=== PATIENT | female | born 1975 | race Caucasian/White ===

== ENCOUNTER 2020-02-08 15:56 | Outpatient (REF) | payer BC, SELFPAY ==
--- NOTE | 2020-02-08 | MM_ITS ---
EXAMINATION: MM SCREENING DIGITAL BREAST TOMOSYNTHESIS, BILATERAL CLINICAL INFORMATION: Screening. Asymptomatic. Family history breast cancer in mother, age 61. 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 The lifetime risk of breast cancer based on the Tyrer-Cuzick Model is 10%. COMPARISON: Mammography: 02/02/2019, 05/19/2018, outside mammography 03/31/2017 and 03/27/2016 ([facility]). TECHNIQUE: Digital breast tomosynthesis is performed in both the craniocaudal and mediolateral oblique views along with computer-aided detection (CAD). Synthesized 2D images are generated from the tomosynthesis. FINDINGS: The breasts are heterogeneously dense, which may obscure small masses (ACR BI-RADS breast composition Category c). There are no significant masses, abnormal calcifications, or other abnormalities. There is biopsy clip marker again noted 8:00 left breast. The axilla and skin contours are unremarkable. No significant changes. IMPRESSION: No mammographic evidence of malignancy. ASSESSMENT: BI-RADS 1: Negative RECOMMENDATION: Routine annual mammography screening. This patient's information was entered into a reminder system with a target due date for their next mammogram.
== END 2020-02-08 15:57 | disposition home or self-care (01) ==
LOC: HO.MAMMO 15:56
PROVIDERS: PCP Internal Medicine; Visit Provider Internal Medicine
DX: Z12.31 Encounter for screening mammogram for malignant neoplasm of breast (principal)
CPT/HCPCS: 77063; 77067; 78014

== ENCOUNTER → 2021-01-04 15:35 | Outpatient (BNVA) | payer BC, SELFPAY | PROVIDERS: PCP Internal Medicine; Visit Provider Surgery ==

== ENCOUNTER 2021-02-20 15:33 | Outpatient (REF) | payer BC, SELFPAY ==
--- NOTE | ~2021-02-20 | MM_ITS ---
EXAMINATION: MM SCREENING DIGITAL BREAST TOMOSYNTHESIS, BILATERAL CLINICAL INFORMATION: Screening. Asymptomatic. Benign MR guided biopsy left breast 05/19/2018 (hyalinized fibroadenoma). The lifetime risk of breast cancer based on the Tyrer-Cuzick Model is 23%. COMPARISON: Mammography: 02/08/2020, 02/02/2019 TECHNIQUE: Digital breast tomosynthesis is performed in both the craniocaudal and mediolateral oblique views along with computer-aided detection (CAD). Synthesized 2D images are generated from the tomosynthesis. FINDINGS: The breasts are heterogeneously dense, which may obscure small masses (ACR BI-RADS breast composition Category c). There are no significant masses, abnormal calcifications, or other abnormalities. Biopsy clip maker again noted mid medial left breast. Parenchymal pattern is similar to prior studies. The axilla and skin contours are unremarkable. MM/MM tomosynthesis screening BI IMPRESSION: No mammographic evidence of malignancy. ASSESSMENT: BI-RADS 1: Negative RECOMMENDATION: 1. Routine annual mammography screening. 2. The lifetime risk of breast cancer based on the Tyrer-Cuzick Model is 23%. Additional annual adjunct screening with breast MRI may be of benefit in women with a risk score of 20% or greater. This patient's information was entered into a reminder system with a target due date for their next mammogram.
== END 2021-02-20 15:34 | disposition home or self-care (01) ==
LOC: HO.MAMMO 15:33
PROVIDERS: Visit Provider Surgery
DX: Z12.31 Encounter for screening mammogram for malignant neoplasm of breast (principal)
CPT/HCPCS: 77063; 77067

== ENCOUNTER 2021-08-20 13:27 | Outpatient (REF) | payer BC, SELFPAY ==
--- NOTE | ~2021-08-20 | MR_ITS ---
EXAMINATION: MR BREAST WITHOUT AND WITH CONTRAST, BILATERAL CLINICAL INFORMATION: High-risk screening. Family history of breast cancer, mother. Dense breasts. COMPARISON: 03/09/2018. Subsequent biopsy 05/19/2018 identifying fibroadenoma. Mammography from 02/20/2021 and prior. TECHNIQUE: Imaging was performed with a dedicated breast coil. Prior to the administration of contrast, bilateral axial T1 and bilateral axial T2 weighted sequences were obtained. After the uneventful administration of?6.5 mL of Gadavist, dynamic contrast-enhanced VIBRANT series through the breasts in the axial plane were performed. Subtracted images were performed and reviewed. A delayed sagittal sequence through both breasts was acquired. Additionally, CAD post-processing, including maximum intensity projections, 3-D reconstructions and kinetic analysis, were performed an independent workstation and reviewed by the interpreting radiologist is a portion of this exam. FINDINGS: The breasts are comprised of heterogeneous, dense fibroglandular parenchyma. The tissue undergoes moderate heterogeneous background enhancement. LEFT BREAST: There is new 4 cm segmental non-mass enhancement at 9 o'clock (image 58/102) originating 3 cm from the nipple. No mammographic correlate. A stable 9 mm left breast mass at 9 o'clock (image 58) projecting 6 cm from the nipple. Mass previously biopsied, a fibroadenoma. A stable 5 mm left breast mass at 3 o'clock (image 52) projecting 2 cm from the nipple. RIGHT BREAST: A dominant 4 mm focus at 12 o'clock centrally (image 51) projecting 3.4 cm from the nipple is better seen but otherwise unchanged. No new right breast mass or suspicious non-mass enhancement. No additional findings on T2-weighted sequences, kinetic analysis or volume renderings. There is no suspicious internal mammary chain or axillary adenopathy. Limited views of the chest and abdomen are unremarkable. MR/MR breast BI wo/w con IMPRESSION: New suspicious 4 cm segmental non-mass enhancement in the left breast 9 o'clock position. ASSESSMENT: LEFT BREAST: BI-RADS 4, suspicious finding. RIGHT BREAST: BI-RADS 2, benign finding. RECOMMENDATIONS: MR-guided core biopsy left breast segmental non-mass enhancement at 9 o'clock.
== END 2021-08-20 13:28 | disposition home or self-care (01) ==
LOC: HO.MRI 13:27
PROVIDERS: Visit Provider Surgery
DX: N63.25 Unspecified lump in the left breast, overlapping quadrants (principal); N63.15 Unspecified lump in the right breast, overlapping quadrants; Z80.3 Family history of malignant neoplasm of breast
CPT/HCPCS: 77049; A9585

== ENCOUNTER 2021-09-05 07:36 | Outpatient (REF) | payer BC, SELFPAY ==
--- NOTE | ~2021-09-05 | MR_ITS ---
EXAMINATION: MR GUIDED VACUUM-ASSISTED CORE BIOPSY BREAST, LEFT MM DIGITAL MAMMOGRAPHY POST BIOPSY, LEFT CLINICAL INFORMATION: New segmental non-mass enhancement medial left breast. Prior left MR biopsy medial breast 05/19/2018 (hyalinized fibroadenoma). Family history breast cancer, mother. TC score 22%.. COMPARISON: MR breasts 08/20/2021, MR guided breast biopsy 05/19/2018, mammography 02/20/2021. TECHNIQUE/PROCEDURE: Informed consent was obtained from the patient after discussion of the benefits, risks, and alternatives to biopsy today. Patient appeared to understand. Gave opportunity for questions. Patient signed consent form. Biopsy is performed under MRI guidance using breast surface coil. Imaging is performed without and with use of 6.5 mL Gadavist gadolinium contrast. [employer] introducer localization system is used with grid. LESION: Segmental non-mass enhancement medial left breast. LOCAL ANESTHESIA: 6 mL carbonated 1% lidocaine; 11 mL 1% lidocaine with epinephrine. NEEDLE: [employer] 9-gauge vacuum assisted core biopsy device. APPROACH: Medial lateral. CORES: 12. CLIP: TriMark spool (barbell) shape. POSTPROCEDURE UNILATERAL DIGITAL MAMMOGRAM: Mammography is performed using digital mammography in CC and ML views. The breasts are heterogeneously dense, which may obscure small masses (ACR BI-RADS breast composition Category c). Biopsy clip marker is in expected position. There is also an old cylinder shaped biopsy clip marker from prior MR biopsy 2018 (fibroadenoma) near this area. No gross hematoma. The patient tolerated the procedure well. No immediate complications. Home instructions reviewed with the patient. Final pathology results are pending. MR/MR guided breast biopsy LT IMPRESSION: 1. Status post MRI guided vacuum-assisted core biopsy left breast with clip placement. 2. Final pathology results pending. An addendum report will be issued.
--- NOTE | ~2021-09-05 | MM_ITS ---
EXAMINATION: MR GUIDED VACUUM-ASSISTED CORE BIOPSY BREAST, LEFT MM DIGITAL MAMMOGRAPHY POST BIOPSY, LEFT CLINICAL INFORMATION: New segmental non-mass enhancement medial left breast. Prior left MR biopsy medial breast 05/19/2018 (hyalinized fibroadenoma). Family history breast cancer, mother. TC score 22%.. COMPARISON: MR breasts 08/20/2021, MR guided breast biopsy 05/19/2018, mammography 02/20/2021. TECHNIQUE/PROCEDURE: Informed consent was obtained from the patient after discussion of the benefits, risks, and alternatives to biopsy today. Patient appeared to understand. Gave opportunity for questions. Patient signed consent form. Biopsy is performed under MRI guidance using breast surface coil. Imaging is performed without and with use of 6.5 mL Gadavist gadolinium contrast. [employer] introducer localization system is used with grid. LESION: Segmental non-mass enhancement medial left breast. LOCAL ANESTHESIA: 6 mL carbonated 1% lidocaine; 11 mL 1% lidocaine with epinephrine. NEEDLE: [employer] 9-gauge vacuum assisted core biopsy device. APPROACH: Medial lateral. CORES: 12. CLIP: TriMark spool (barbell) shape. POSTPROCEDURE UNILATERAL DIGITAL MAMMOGRAM: Mammography is performed using digital mammography in CC and ML views. The breasts are heterogeneously dense, which may obscure small masses (ACR BI-RADS breast composition Category c). Biopsy clip marker is in expected position. There is also an old cylinder shaped biopsy clip marker from prior MR biopsy 2018 (fibroadenoma) near this area. No gross hematoma. The patient tolerated the procedure well. No immediate complications. Home instructions reviewed with the patient. Final pathology results are pending. MM/MM diagnostic mammo unilat LT IMPRESSION: 1. Status post MRI guided vacuum-assisted core biopsy left breast with clip placement. 2. Final pathology results pending. An addendum report will be issued.
[2021-09-05] MEDS: Sodium Bicarbonate 8.4% 50 MEQ/50 ML SYRINGE IVPUSH (09:55)
[2021-09-05] MEDS: Lidocaine HCl 1%/Epi 1:100,000 20 ML VIAL INFILTRATI (09:56)
[2021-09-05] MEDS: Lidocaine HCl 1 % MPF 5 ML VIAL SUBCUT (09:58)
== END 2021-09-05 07:37 | disposition home or self-care (01) ==
LOC: HO.MRI 07:36
PROVIDERS: Visit Provider Surgery
DX: R92.8 Other abnormal and inconclusive findings on diagnostic imaging of breast (principal)
CPT/HCPCS: 19085; 77062; 77065; 88305; A4648; A9585

== ENCOUNTER 2022-02-26 15:22 | Outpatient (REF) | payer BC, SELFPAY ==
--- NOTE | ~2022-02-26 | MM_ITS ---
EXAMINATION: MM SCREENING DIGITAL BREAST TOMOSYNTHESIS, BILATERAL CLINICAL INFORMATION: Screening. Asymptomatic. The lifetime risk of breast cancer based on the Tyrer-Cuzick Model is 21.1 Additional annual screening with breast MRI may be of benefit in women with a score of 20% or greater. COMPARISON: Mammography: September 05, 2021 and studies dating back to MRI of March 09, 2018. TECHNIQUE: Digital breast tomosynthesis is performed in both the craniocaudal and mediolateral oblique views along with computer-aided detection (CAD). Synthesized 2D images are generated from the tomosynthesis. FINDINGS: The breasts are heterogeneously dense, which may obscure small masses (ACR BI-RADS breast composition Category c). There are no new significant masses, abnormal calcifications, or other abnormalities. MM/MM tomosynthesis screening BI IMPRESSION: No significant changes from prior exam. ASSESSMENT: BI-RADS 1: Negative RECOMMENDATION: Routine annual mammography screening. This patient's information was entered into a reminder system with a target due date for their next mammogram.
== END 2022-02-26 15:23 | disposition home or self-care (01) ==
LOC: HO.MAMMO 15:22
PROVIDERS: PCP Internal Medicine; Visit Provider Surgery
DX: Z12.31 Encounter for screening mammogram for malignant neoplasm of breast (principal)
CPT/HCPCS: 77063; 77067

== ENCOUNTER 2023-01-23 14:48 | Outpatient (AMB) | payer BC, SELFPAY ==
--- NOTE | 2023-01-23 14:50 | MHC.OFFVIS ---
Intake Vital Signs 01/23/23 14:57 Height 5 ft 2 in Weight 144 lb 4 oz BMI 26.4 BP 118/71 Blood Pressure Location Lt brachial Position Sitting Pulse 91 Intake Visit Reasons: YEARLY BREAST EXAMINATION Intake Note: Patient is seen in office for yearly breast exam. 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 She was previously followed in Dr. Lea's high risk breast cancer program. Her family history is significant for her mother being diagnosed with a stage 4 breast cancer after finding a large breast mass. She one year after the diagnosis. In addition, her paternal grandmother also was treated for breast cancer and underwent a bilateral mastectomy. She lived well into her 90's. She underwent a MR guided vacuum assisted core biopsy a left breast on 05/19/2018 for a nodular non mass enhancement at the 9 o'clock position measuring 5 x 9 mm. Subsequent pathology revealed a hyalinized fibroadenoma. Her Tyrer-Cuzick remaining lifetime risk of breast cancer was calculated at 23%, above the 20% threshold placing her at high risk for breast cancer. MRI dated 08/20/2021 revealed a new suspicious 4 cm segmental non-mass enhancement in the left breast, 9 o'clock position. She underwent MR guided core biopsy on 09/05/2021 and the pathology revealed benign breast tissue with fibrocystic change, pseudoangiomatous stromal hyperplasia and features suggestive of a hamartoma. Her most recent mammogram dated 02/26/2022 revealed no significant changes from the prior mammogram (BI-RADS 1). Routine annual screening mammogram is scheduled for 02/27/2023. She is due for a breast MRI both like to skip for this year due to her anxiety with the test.. She denies any new palpable masses, skin changes, nipple discharge or other associated breast symptoms. She continues to be followed by her surgical sales representative, Dr. Montes. [facility] Family History Paternal Grandmother Breast cancer Mother Breast cancer Social History Alcohol intake: current Patient Tobacco Use Status: Never used Tobacco Female Reproductive History Menstrual Age of Menarche: 16 Review of Systems Const All systems reviewed & are unremarkable except as noted in HPI and below Denies nipple discharge Skin/Breast Denies breast swelling, Denies breast skin changes, Denies breast pain, Denies breast mass, Denies change in breast shape, Denies change in pigmentation and Denies nipple discharge Yunior/Lymph Denies lymphadenopathy Physical Exam Const General: cooperative, no acute distress and well developed Nutritional Appearance: well nourished Orientation/consciousness: patient oriented x3 Limitations: no limitations HEENT Head: Yes normocephalic and Yes atraumatic Neck Neck: Yes no lymphadenopathy, Yes trachea midline and Yes supple Chest Other: Left breast: No skin change, no nipple retraction, no nipple discharge, no palpable mass, no enlarged lymph nodes. Slight increased fibrocystic change in the upper outer quadrant compared to the right breast Right breast: No skin change, no nipple retraction, no nipple discharge, no palpable mass, no enlarged lymph nodes Resp Effort & Inspection: normal respiratory effort, no audible wheezes, no cough and no respiratory distress GI Inspection: Yes normal to inspection Skin General skin exam: no rashes or lesions noted Neuro General: patient oriented x3 Extrem General: Yes no clubbing, cyanosis or edema Assessment & Plan Assessment & Plan (1) Family history of breast cancer: Code(s): Z80.3 - Family history of malignant neoplasm of breast (2) Breast cancer screening, high risk patient: Code(s): Z12.39 - Encounter for other screening for malignant neoplasm of breast Plan 47-year-old female patient returning for a yearly follow-up examination due to her high risk for breast cancer. She feels well and denies any ongoing breast symptoms. Examination today reveals normal breast tissue which is dense bilaterally. She is due for a yearly mammogram which is scheduled for 02/27/2022. She is also due for breast MRI; will push this back 6 months the following the mammogram. She should follow up in 1 year for breast examination and continue her follow-up with her surgical sales representative. She should call sooner for any concerns. Coding Level of Care Code Est Pt Level 3 (69845) Diagnoses Family history of breast cancer Z80.3 Breast cancer screening, high risk patient Z12.39
[2023-01-23 14:57] VITALS: BP 118/71; PULSE 91; BMI 26.4
== END 2023-01-23 15:07 | disposition home or self-care (01) ==
PROVIDERS: PCP Internal Medicine; Visit Provider Surgery
DX: Z80.3 Family history of malignant neoplasm of breast (principal); Z12.39 Encounter for other screening for malignant neoplasm of breast
CPT/HCPCS: 99213

== ENCOUNTER → 2023-01-23 14:48 | Outpatient (BNVA) | payer BC, SELFPAY | PROVIDERS: PCP Internal Medicine; Visit Provider Surgery ==

== ENCOUNTER 2023-02-27 15:36 | Outpatient (REF) | payer BC, SELFPAY ==
--- NOTE | ~2023-02-27 | MM_ITS ---
EXAMINATION: MM SCREENING DIGITAL BREAST TOMOSYNTHESIS, BILATERAL CLINICAL INFORMATION: Screening. Asymptomatic. COMPARISON: Mammography: This study is compared with prior exams dating back to 2019. TECHNIQUE: Digital breast tomosynthesis is performed in both the craniocaudal and mediolateral oblique views along with computer-aided detection (CAD). Synthesized 2D images are generated from the tomosynthesis. FINDINGS: The breasts are heterogeneously dense, which may obscure small masses (ACR BI-RADS breast composition Category c). There are no significant masses, abnormal calcifications, or other abnormalities. There are 2 tissue markers in the medial aspect of the left breast from prior benign percutaneous biopsy. MM/MM tomosynthesis screening BI IMPRESSION: No mammographic evidence of malignancy. ASSESSMENT: BI-RADS BI-RADS 2 - Benign Findings RECOMMENDATION: Routine annual mammography screening. 1 year F/U This examination should not preclude the clinical evaluation of a suspicious palpable abnormality. This patient's information was entered into a reminder system with a target due date for their next mammogram.
== END 2023-02-27 15:37 | disposition home or self-care (01) ==
LOC: HO.MAMMO 15:36
PROVIDERS: PCP Internal Medicine; Referring Provider Surgery; Visit Provider Internal Medicine
DX: Z12.31 Encounter for screening mammogram for malignant neoplasm of breast (principal)
CPT/HCPCS: 77063; 77067

== ENCOUNTER → 2023-02-27 15:45 | Outpatient (BNV) | payer BC, SELFPAY | PROVIDERS: PCP Internal Medicine; Referring Provider Surgery; Visit Provider Radiology Diagnostic Radiology | DX: Z12.31 Encounter for screening mammogram for malignant neoplasm of breast (principal) | CPT/HCPCS: 77063; 77067 ==

== ENCOUNTER 2023-09-09 14:08 | Outpatient (AMB) | payer BC, SELFPAY ==
--- NOTE | 2023-09-09 14:13 | A.OFFVIS_ITS ---
Vital Signs 09/09/23 14:14 Height 5 ft 2 in Weight 145 lb BMI 26.5 BP 132/75 Blood Pressure Location Rt brachial Position Sitting Pulse 104 H Intake Visit Reasons: Left shoulder pain, ? breast MRI Intake Note: This patient presents for an assessment for left shoulder pain. Patient c/o; reports left shoulder pain, reports ? Rotator cuff tear. 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 She was previously followed in Dr. Lea's high risk breast cancer program. Her family history is significant for her mother being diagnosed with a stage 4 breast cancer after finding a large breast mass. She one year after the diagnosis. In addition, her paternal grandmother also was treated for breast cancer and underwent a bilat eral mastectomy. She lived well into her 90's. She underwent a MR guided vacuum assisted core biopsy a left breast on 05/19/2018 for a nodular non mass enhancement at the 9 o'clock position measuring 5 x 9 mm. Subsequent pathology revealed a hyalinized fibroadenoma. Her Tyrer-Cuzick remaining lifetime risk of breast cancer was calculated at 23%, above the 20% threshold placing her at high risk for breast cancer. MRI dated 08/20/2021 revealed a new suspicious 4 cm segmental non-mass enhancement in the left breast, 9 o'clock position. She underwent MR guided core biopsy on 09/05/2021 and the pathology revealed benign breast tissue with fibrocystic change, pseudoangiomatous stromal hyperplasia and features suggestive of a hamartoma. Her most recent mammogram dated 02/26/2022 revealed no significant changes from the prior mammogram (BI-RADS 1). Routine annual screening mammogram is scheduled for 02/27/2023. She reports severe left shoulder pain which he believes started when she slept ?the wrong way. ? Pain has persisted despite taking ibuprofen, applying ice and applying heat. She does not feel she could undergo the MRI because of the difficulty of raising her left arm. COUNTS INCLUDE 234 BEDS AT THE [facility] Family History Paternal Grandmother Breast cancer Mother Breast cancer Social History Alcohol intake: current Patient Tobacco Use Status: Never used Tobacco Female Reproductive History Menstrual Age of Menarche: 16 Review of Systems Musc Reports as per HPI and Reports limited range of motion Physical Exam Vital Signs: Last Vital Signs Pulse 104 H 09/09/23 14:14 BP 132/75 09/09/23 14:14 BMI result Body Mass Index 26.5 Const General: no acute distress Chest Other: Exam deferred Resp Effort & Inspection: normal respiratory effort, no audible wheezes, no cough and no respiratory distress Extrem Other: Left shoulder unable to actively passively raise arm overhead. No tenderness to palpation of the shoulder. No bruising identified. Assessment & Plan Assessment & Plan (1) Left shoulder pain: Code(s): M25.512 - Pain in left shoulder Category: Medical Qualifiers: Chronicity: acute Qualified Code(s): M25.512 - Pain in left shoulder (2) Breast cancer screening, high risk patient: Code(s): Z12.39 - Encounter for other screening for malignant neoplasm of breast Category: Medical (3) Family history of breast cancer: Code(s): Z80.3 - Family history of malignant neoplasm of breast Category: Medical Plan Patient with severe shoulder pain therefore will be unable to proceed with breast MRI. We will refer to orthopedics for further evaluation. Will obtain bilateral screening ultrasound the breast as an alternative to breast MRI. Follow-up as previously scheduled. Orders: Orders US breast LT complete Today Z12.39 - Encounter for other screening for malignant neoplasm of breast, Z80.3 - Family history of malignant neoplasm of breast US breast RT complete Today Z12.39 - Encounter for other screening for malignant neoplasm of breast, Z80.3 - Family history of malignant neoplasm of breast Referrals Orthopedics Referral M25.512 - Pain in left shoulder Coding Level of Care Code Est Pt Level 3 (32179) Diagnoses Acute pain of left shoulder M25.512 Chronicity: acute Breast cancer screening, high risk patient Z12.39 Family history of breast cancer Z80.3
[2023-09-09 14:14] VITALS: BP 132/75; PULSE 104; BMI 26.5
== END 2023-09-09 14:50 | disposition home or self-care (01) ==
PROVIDERS: PCP Internal Medicine; Visit Provider Surgery
DX: M25.512 Pain in left shoulder (principal); Z80.3 Family history of malignant neoplasm of breast; Z12.39 Encounter for other screening for malignant neoplasm of breast
CPT/HCPCS: 99213

== ENCOUNTER → 2023-09-09 14:08 | Outpatient (BNVA) | payer BC, SELFPAY | PROVIDERS: PCP Internal Medicine; Visit Provider Surgery ==

== ENCOUNTER 2023-09-23 14:00 | Outpatient (AMB) | payer BC, SELFPAY ==
[2023-09-23 14:10] VITALS: BMI 26.5
--- NOTE | 2023-09-23 14:10 | MHC.OFFVIS ---
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 The patient describes her pain as sharp in nature, 7/10. Patient states that her pain will radiate down to her left elbow. The patient states that she injured her left shoulder approximately 7 months ago when her yellow Labrador dog hold on his leash and her left shoulder when he chased after a chipmunk. The patient reports weakness when lifting her left hand above shoulder height. She has done physical therapy exercises which aggravated her pain. She has also tried Tylenol and Aleve which gave her minimal. 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 Female Reproductive History Menstrual Age of Menarche: 16 Physical Exam Vital Signs: BMI result Body Mass Index 26.5 Const Other: Well-nourished well-developed very friendly female awake alert and oriented x3 in no acute distress Extrem Other: Bilateral upper extremity examination shows good capillary refill, no skin lesions noted, normal sensation light touch Left shoulder examination shows slightly decreased range of motion when compared to her right shoulder, pain with range of motion, positive impingement signs, tenderness over her acromioclavicular joint, no instability Results Reviewed Results Reviewed: X-rays of the patient's left shoulder show severe acromioclavicular joint narrowing, a type 2 acromion, no acute bony abnormalities Assessment & Plan Assessment & Plan (1) Left shoulder pain: Code(s): M25.512 - Pain in left shoulder Category: Medical Qualifiers: Chronicity: acute Qualified Code(s): M25.512 - Pain in left shoulder Plan Ms. Mar presents with left shoulder pain and weakness due to impingement syndrome and possible full-thickness rotator cuff tearing. Thus, I will send the patient for an MRI of her left shoulder for further evaluation. She will continue with the range of motion exercises in the meantime. I will see her back following her MRI to discuss the findings and treatment options. Feel free to call me at any time should questions regarding her orthopedic management arise. Thank you very much for asking me to see this very friendly patient. I spent 20 minutes in reviewing the patient's records and imaging studies, seeing the patient and documenting in the medical record. Orders: Orders XR shoulder LT min 2V 09/23/23 M25.512 - Pain in left shoulder MR shoulder LT wo con 09/23/23 M25.512 - Pain in left shoulder Coding Level of Care Code New Pt Level 3 (20858) Diagnoses Acute pain of left shoulder M25.512 Chronicity: acute
== END 2023-09-23 14:38 | disposition home or self-care (01) ==
PROVIDERS: PCP Internal Medicine; Visit Provider Orthopaedic Surgery
DX: M25.512 Pain in left shoulder (principal)
CPT/HCPCS: 99203

== ENCOUNTER 2023-09-23 15:44 | Outpatient (REF) | payer BC, SELFPAY ==
--- NOTE | ~2023-09-23 | XR_ITS ---
EXAMINATION: XR SHOULDER, LEFT CLINICAL INFORMATION: Pain in left shoulder pain COMPARISON: None available. TECHNIQUE: Two views of the left shoulder. FINDINGS: Minimal degenerative changes in the acromioclavicular and glenohumeral joints. Acromioclavicular and glenohumeral alignment is preserved. No abnormal soft tissue calcifications identified adjacent to the humeral head to suggest rotator cuff pathology. XR/XR shoulder LT min 2V IMPRESSION: Minimal degenerative changes.
== END 2023-09-23 15:45 | disposition home or self-care (01) ==
LOC: HO.HOSX 15:44
PROVIDERS: Visit Provider Orthopaedic Surgery
DX: M25.512 Pain in left shoulder (principal)
CPT/HCPCS: 73030

== ENCOUNTER 2023-10-01 13:42 | Outpatient (AMB) | payer BC, SELFPAY ==
[2023-10-01 13:47] VITALS: BMI 26.5
--- NOTE | 2023-10-01 13:47 | A.OFFVIS_ITS ---
Vital Signs 10/01/23 13:47 Height 5 ft 2 in Weight 145 lb BMI 26.5 Intake Visit Reasons: OV - Left shoulder MRI Follow Up Intake Note: Saskia is a 47 year old Left hand dominant female who presents with intermittent left shoulder pain. The patient describes her pain as sharp in nature, 7/10. Patient states that her pain will radiate down to her left elbow. The patient states that she injured her left shoulder approximately 7 months ago when her yellow Labrador dog hold on his leash and her left shoulder when he chased after a chipmunk. She has done physical therapy exercises which aggravated her pain. She has also tried Tylenol and Aleve which gave her minimal. 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 Female Reproductive History Menstrual Age of Menarche: 16 Physical Exam Vital Signs: BMI result Body Mass Index 26.5 Const Other: Well-nourished well-developed very friendly female awake alert and oriented x3 in no acute distress Extrem Other: Bilateral upper extremity examination shows good capillary refill, no skin lesions noted, normal sensation light touch Left shoulder examination shows full range of motion when compared to her right shoulder, positive impingement signs, 5/5 strength with supraspinatus testing, no instability Office Procedures Joint Injection/Drain Joint Injection/Drain Primary Site: left shoulder Prep: site was prepped using aseptic technique Injected: 40 mg of, DepoMedrol and 1% plain lidocaine Procedure: The patient tolerated the procedure well Coding 66191 - Large joint Procedure code (CPT) selection complete Results Reviewed Results Reviewed: MRI of the patient's left shoulder shows moderate to severe acromioclavicular joint narrowing, a type 3 acromion, signal change within the supraspinatus tendo n most likely due to rotator cuff tendinosis Assessment & Plan Assessment & Plan (1) Left shoulder pain: Code(s): M25.512 - Pain in left shoulder Category: Medical Qualifiers: Chronicity: acute Qualified Code(s): M25.512 - Pain in left shoulder Plan Ms. Mar presents with left shoulder pain due to impingement syndrome and rotator cuff tendinosis. I had a lengthy discussion with the patient regarding the treatment options. She wishes to hold off on surgery for as long as possible. I agree with this plan. The risks and benefits of a left shoulder cortisone injection were discussed at length with the patient. The patient wished to proceed with the injection. She tolerated the injection well. She will continue with her home stretching program to prevent stiffness. She will follow up with me on an as-needed basis should her symptoms not plateau at an unacceptable level over the next few months. Feel free to call me at any time should questions regarding her orthopedic management arise. I spent 21 minutes in reviewing the patient's records and imaging studies, seeing the patient and documenting in the medical record. Orders: Orders AMB Joint Injection/Aspiration 10/01/23 M25.512 - Pain in left shoulder Coding Level of Care Code Est Pt Level 3 (54493) Diagnoses Acute pain of left shoulder M25.512 Chronicity: acute CPT Codes Coding - 80502 Large joint: 46464 - Large joint ([id number])
== END 2023-10-01 14:28 | disposition home or self-care (01) ==
PROVIDERS: PCP Internal Medicine; Visit Provider Orthopaedic Surgery
DX: M25.512 Pain in left shoulder (principal)
CPT/HCPCS: 20610; 99213

== ENCOUNTER → 2023-10-01 13:42 | Outpatient (BNVA) | payer BC, SELFPAY | PROVIDERS: PCP Internal Medicine; Visit Provider Orthopaedic Surgery | DX: M75.42 Impingement syndrome of left shoulder (principal); M67.814 Other specified disorders of tendon, left shoulder | CPT/HCPCS: 20610; J1010 ==

== ENCOUNTER 2023-11-11 14:48 | Outpatient (REF) | payer BC, SELFPAY ==
--- NOTE | ~2023-11-11 | US_ITS ---
EXAMINATION: US DIAGNOSTIC ULTRASOUND BREAST, BILATERAL CLINICAL INFORMATION: Screening, high risk for breast cancer, patient unable to undergo screening breast MRI due to rotator cuff shoulder injury. COMPARISON: No prior screening ultrasound. Mammography 02/27/2023, 02/26/2022, 02/20/2021, 02/08/2020. Screening MRI 08/20/2021. TECHNIQUE: Ultrasound of the both breasts was performed with real-time dorsey scale imaging and color Doppler. This included all 4 quadrants of both breasts including the retroareolar regions. The axillary regions were also included within the confines of rotator cuff injury. FINDINGS: There is no focal suspicious finding. There is no solid mass, architectural abnormality, duct ectasia, abnormal shadowing, or edema in the soft tissue planes. No axillary lymphadenopathy was evident. Results were provided to the patient at time of visit by the technologist. US/US breast BI complete IMPRESSION: Negative bilateral breast screening ultrasound. No findings suspicious for malignancy. ASSESSMENT: BI-RADS 1 - Negative RECOMMENDATION: 1 year F/U This patient's information was entered into a reminder system with a target due date for their next mammogram.
== END 2023-11-11 14:49 | disposition home or self-care (01) ==
LOC: HO.MAMMO 14:48
PROVIDERS: PCP Internal Medicine; Visit Provider Surgery
DX: Z12.39 Encounter for other screening for malignant neoplasm of breast (principal); Z80.3 Family history of malignant neoplasm of breast
CPT/HCPCS: 76641

== ENCOUNTER → 2023-11-11 15:00 | Outpatient (BNV) | payer BC, SELFPAY | PROVIDERS: PCP Internal Medicine; Visit Provider Radiology Diagnostic Radiology | DX: Z12.31 Encounter for screening mammogram for malignant neoplasm of breast (principal); Z80.3 Family history of malignant neoplasm of breast | CPT/HCPCS: 76641 ==

== ENCOUNTER 2024-01-01 13:14 | Outpatient (AMB) | payer BC, SELFPAY ==
[2024-01-01 13:27] VITALS: BMI 26.5
--- NOTE | 2024-01-01 13:27 | MHC.OFFVIS ---
Vital Signs 01/01/24 13:27 Height 5 ft 2 in Weight 145 lb BMI 26.5 Intake Visit Reasons: Left shoulder pain - last inj 10/01/23 Intake Note: Saskia is a 48 year old female who presents with complaints of left shoulder pain. The patient did have a cortisone injection given into her left shoulder earlier this year. She got temporary relief from the injection. She denies any weakness. She has done physical therapy exercises which aggravated her pain. She has tried Tylenol and anti-inflammatory medicines which gave her minimal relief. She would like to hold off on surgery if at all possible. 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 Female Reproductive History Menstrual Age of Menarche: 16 Physical Exam Vital Signs: BMI result Body Mass Index 26.5 Const Other: Well-nourished well-developed very friendly female awake alert and oriented x3 in no acute distress Extrem Other: Bilateral upper extremity examination shows good capillary refill, no skin lesions noted, normal sensation light touch Left shoulder examination shows decreased range of motion when compared to her right shoulder, 4+ out of 5 strength with supraspinatus testing, positive impingement signs, tenderness over her acromioclavicular joint, no instability Office Procedures Joint Injection/Aspiration Joint Injection/Aspiration Primary Site: left shoulder Prep: site was prepped using aseptic technique Injected: 40 mg of, DepoMedrol and 1% plain lidocaine Procedure: The patient tolerated the procedure well Coding 13940 - Large joint Procedure code (CPT) selection complete Assessment & Plan Assessment & Plan (1) Impingement syndrome of left shoulder: Code(s): M75.42 - Impingement syndrome of left shoulder Category: Medical Plan Ms. Mar presents with left shoulder pain due to impingement syndrome and acromioclavicular joint arthritis. I had a lengthy discussion with the patient regarding the treatment options. The risks and benefits of a left shoulder cortisone injection were discussed at length with the patient. The patient wished to proceed. She tolerated the injection well. She will continue with her home stretching program. She will follow up with me on an as-needed basis should her symptoms not plateau at an unacceptable level over the next few months. If she fails continued non operative treatments we will further discuss the risks and benefits of left shoulder arthroscopic surgery. Feel free to call me at any time should questions regarding her orthopedic management arise. I spent 21 minutes in reviewing the patient's records and imaging studies, seeing the patient and documenting in the medical record. Orders: Orders AMB Joint Injection/Aspiration 01/01/24 M75.42 - Impingement syndrome of left shoulder Coding Level of Care Code Est Pt Level 3 (81866) Complex EM visit Add On G2211 Diagnoses Impingement syndrome of left shoulder M75.42 CPT Codes Coding - 54988 Large joint: 50881 - Large joint ([id number])
== END 2024-01-01 13:58 | disposition home or self-care (01) ==
PROVIDERS: PCP Internal Medicine; Visit Provider Orthopaedic Surgery
DX: M75.42 Impingement syndrome of left shoulder (principal)
CPT/HCPCS: 20610; 99213

== ENCOUNTER → 2024-01-01 13:14 | Outpatient (BNVA) | payer BC, SELFPAY | PROVIDERS: PCP Internal Medicine; Visit Provider Orthopaedic Surgery | DX: M75.42 Impingement syndrome of left shoulder (principal); M19.012 Primary osteoarthritis, left shoulder | CPT/HCPCS: 20610; J1010 ==

== ENCOUNTER 2024-02-12 15:07 | Outpatient (AMB) | payer BC, SELFPAY ==
--- NOTE | 2024-02-12 15:08 | MHC.OFFVIS ---
Vital Signs 02/12/24 15:15 Height 5 ft 2 in Weight 146 lb BMI 26.7 BP 138/75 Blood Pressure Location Lt brachial Position Sitting Pulse 98 Intake Visit Reasons: yearly breast exam Intake Note: Patient is seen in office for yearly breast exam. 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 She was previously followed in Dr. Lea's high risk breast cancer program. Her family history is significant for her mother being diagnosed with a stage 4 breast cancer after finding a large breast mass. She one year after the diagnosis. In addition, her paternal grandmother also was treated for breast cancer and underwent a bilateral mastectomy. She lived well into her 90's. She underwent a MR guided vacuum assisted core biopsy a left breast on 05/19/2018 for a nodular non mass enhancement at the 9 o'clock position measuring 5 x 9 mm. Subsequent pathology revealed a hyalinized fibroadenoma. Her Tyrer-Cuzick remaining lifetime risk of breast cancer was calculated at 23%, above the 20% threshold placing her at high risk for breast cancer. MRI dated 08/20/2021 revealed a new suspicious 4 cm segmental non-mass enhancement in the left breast, 9 o'clock position. She underwent MR guided core biopsy on 09/05/2021 and the pathology revealed benign breast tissue with fibrocystic change, pseudoangiomatous stromal hyperplasia and features suggestive of a hamartoma. Her most recent mammogram dated 02/27/2023 revealed no mammographic evidence of malignancy. She underwent bilateral breast ultrasounds on 11/11/2023 which revealed no suspicious findings (BI-RADS 1). She is scheduled for an annual mammogram on 02/22/2024. She reports severe left shoulder pain was determined to be a bone spur/rotator cuff injury. She has undergone several injections which helped for a period of time. She is unable to raise her arm overhead therefore would like to avoid the MRI. 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 Slight increased fibrocystic change in the upper outer quadrant compared to the right breast Right breast: No skin change, no nipple retraction, no nipple discharge, no palpable mass, no enlarged lymph nodes Resp Effort & Inspection: normal respiratory effort, no audible wheezes, no cough and no respiratory distress GI Inspection: Yes normal to inspection Skin General skin exam: no rashes or lesions noted Extrem General: Yes no clubbing, cyanosis or edema Assessment & Plan Assessment & Plan (1) Family history of breast cancer: Code(s): Z80.3 - Family history of malignant neoplasm of breast Category: Medical (2) At high risk for breast cancer: Code(s): Z91.89 - Other specified personal risk factors, not elsewhere classified Category: Medical Plan 48-year-old female patient returning for an annual high risk breast examination. Examination today revealed no suspicious findings in either breast. Her most recent mammogram of 02/27/2023 revealed no mammographic evidence of malignancy (BI-RADS 2). As an alternative to breast MRI, bilateral breasts screening ultrasounds were performed on 11/11/2023. These revealed no suspicious findings in either breast (BI-RADS 1). She is scheduled for an annual mammogram on 02/22/2024. I recommended follow-up examination in 1 year. Orders: Orders US breast LT complete 11/11/24 Z80.3 - Family history of malignant neoplasm of breast, Z91.89 - Other specified personal risk factors, not elsewhere classified US breast RT complete 11/11/24 Z80.3 - Family history of malignant neoplasm of breast, Z91.89 - Other specified personal risk factors, not elsewhere classified Coding Level of Care Code Est Pt Level 3 (58701) Diagnoses Family history of breast cancer Z80.3 At high risk for breast cancer Z91.89
[2024-02-12 15:15] VITALS: BP 138/75; PULSE 98; BMI 26.7
== END 2024-02-12 15:25 | disposition home or self-care (01) ==
PROVIDERS: PCP Internal Medicine; Visit Provider Surgery
DX: Z80.3 Family history of malignant neoplasm of breast (principal); Z91.89 Other specified personal risk factors, not elsewhere classified
CPT/HCPCS: 99213

== ENCOUNTER → 2024-02-12 15:07 | Outpatient (BNVA) | payer BC, SELFPAY | PROVIDERS: PCP Internal Medicine; Visit Provider Surgery ==

== ENCOUNTER 2024-03-01 14:58 | Outpatient (REF) | payer BC, SELFPAY ==
--- NOTE | ~2024-03-01 | MM_ITS ---
EXAMINATION: MM SCREENING DIGITAL BREAST TOMOSYNTHESIS, BILATERAL CLINICAL INFORMATION: Screening. Asymptomatic. COMPARISON: Mammography: Comparison is made with available priors TECHNIQUE: Digital breast mammography with tomosynthesis is performed in both the craniocaudal and mediolateral oblique views along with computer-aided detection (CAD). FINDINGS: The breasts are heterogeneously dense, which may obscure small masses (ACR BI-RADS breast composition Category c). Left marker clips. There are no significant masses, abnormal calcifications, or other abnormalities. MM/MM tomosynthesis screening BI IMPRESSION: No mammographic evidence of malignancy. ASSESSMENT: BI-RADS BI-RADS 2 - Benign Findings RECOMMENDATION: Routine annual mammography screening. 1 year F/U This examination should not preclude the clinical evaluation of a suspicious palpable abnormality. This patient's information was entered into a reminder system with a target due date for their next mammogram. Electronically signed by: Kalie Ivey DO 03/10/2024 10:28 AM OLGA
== END 2024-03-01 14:59 | disposition home or self-care (01) ==
LOC: HO.MAMMO 14:58
PROVIDERS: Visit Provider Surgery
DX: Z12.31 Encounter for screening mammogram for malignant neoplasm of breast (principal)
CPT/HCPCS: 77063; 77067

== ENCOUNTER → 2024-03-01 15:30 | Outpatient (BNV) | payer BC, SELFPAY | PROVIDERS: Visit Provider Internal Medicine | DX: Z12.31 Encounter for screening mammogram for malignant neoplasm of breast (principal) | CPT/HCPCS: 77063; 77067 ==

== ENCOUNTER 2024-04-06 14:33 | Outpatient (AMB) | payer BC, SELFPAY ==
--- NOTE | 2024-04-06 14:37 | A.OFFVIS_ITS ---
Vital Signs 04/06/24 14:38 Height 5 ft 2 in Weight 146 lb BMI 26.7 Intake Visit Reasons: Left shoulder pain Intake Note: Saskia is a 48 year old female who presents with complaints of progressively worsening left shoulder pain. She describes her pain as sharp in nature. Most of the pain is along the lateral aspect of her shoulder. She denies any weakness. She has had cortisone injections in the past which gave her fairly good relief. She wishes to hold off on surgery if at all possible. 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 Female Reproductive History Menstrual Age of Menarche: 16 Physical Exam Vital Signs: BMI result Body Mass Index 26.7 Const Other: Well-nourished well-developed very friendly female awake alert and oriented x3 in no acute distress Extrem Other: Bilateral upper extremity examination shows good capillary refill, no skin lesions noted, normal sensation light touch Left shoulder examination shows slightly decreased range of motion when compared to her right shoulder, 4+ out of 5 strength with supraspinatus testing, positive impingement signs, no instability Office Procedures AMB Joint Injection/Aspiration Joint Injection/Aspiration Primary Site: left shoulder Prep: site was prepped using aseptic technique Injected: 40 mg of, DepoMedrol and 1% plain lidocaine Procedure: The patient tolerated the procedure well Coding 90815 - Large joint Procedure code (CPT) selection complete Assessment & Plan Assessment & Plan (1) Impingement syndrome of left shoulder: Code(s): M75.42 - Impingement syndrome of left shoulder Category: Medical (2) Left shoulder pain: Code(s): M25.512 - Pain in left shoulder Category: Medical Qualifiers: Chronicity: acute Qualified Code(s): M25.512 - Pain in left shoulder Plan Ms. Mar presents with left shoulder pain due to impingement syndrome. The risks and benefits of a left shoulder cortisone injection were discussed at length with the patient. The patient wished to proceed. She tolerated the injection well. She will continue with her home stretching program. She will contact me prior to her follow-up appointment in 3 months should any questions or concerns arise. Feel free to call me at any time should questions regarding her orthopedic management arise. I spent 21 minutes in reviewing the patient's records and imaging studies, seeing the patient and documenting in the medical record. Orders: Orders AMB Joint Injection/Aspiration 04/06/24 M75.42 - Impingement syndrome of left shoulder Coding Level of Care Code Est Pt Level 3 (52447) Complex EM visit Add On G2211 Diagnoses Impingement syndrome of left shoulder M75.42 Acute pain of left shoulder M25.512 Chronicity: acute CPT Codes Coding - 64530 Large joint: 75518 - Large joint ([id number])
[2024-04-06 14:38] VITALS: BMI 26.7
== END 2024-04-06 15:04 | disposition home or self-care (01) ==
PROVIDERS: PCP Internal Medicine; Visit Provider Orthopaedic Surgery
DX: M75.42 Impingement syndrome of left shoulder (principal); M25.512 Pain in left shoulder
CPT/HCPCS: 20610; 99213

== ENCOUNTER → 2024-04-06 14:33 | Outpatient (BNVA) | payer BC, SELFPAY | PROVIDERS: PCP Internal Medicine; Visit Provider Orthopaedic Surgery | DX: M75.42 Impingement syndrome of left shoulder (principal); M25.512 Pain in left shoulder | CPT/HCPCS: 20610; J1010; J2003 ==

== ENCOUNTER 2024-07-06 13:06 | Outpatient (AMB) | payer BC, SELFPAY ==
--- NOTE | 2024-07-06 13:11 | MHC.OFFVIS ---
Vital Signs 07/06/24 13:14 Height 5 ft 2 in Weight 146 lb BMI 26.7 Intake Visit Reasons: Inj-Left Shoulder injection-last inj 04/06/24 Intake Note: Saskia is a 48 year old left hand dominant female who presents with complaints of left shoulder pain. She describes her pain as sharp in nature. She has had cortisone injections in the past which gave her fairly good relief. She wishes to hold off on surgery if at all possible. She has done physical therapy exercises which aggravated her pain. She has also tried Tylenol and anti-inflammatory medicines which gave her mild relief. 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 Female Reproductive History Menstrual Age of Menarche: 16 Physical Exam Vital Signs: BMI result Body Mass Index 26.7 Const Other: Well-nourished well-developed very friendly female awake alert and oriented x3 in no acute distress Extrem Other: Bilateral upper extremity examination shows good capillary refill, no skin lesions noted, normal sensation light touch Left shoulder examination shows slightly decreased range of motion when compared to her right shoulder, 4+ out of 5 strength with supraspinatus testing, positive impingement signs, no instability Office Procedures AMB Joint Injection/Aspiration Joint Injection/Aspiration Primary Site: left shoulder Prep: site was prepped using aseptic technique Injected: 40 mg of, DepoMedrol and 1% plain lidocaine Procedure: The patient tolerated the procedure well Coding 49395 - Large joint Procedure code (CPT) selection complete Assessment & Plan Assessment & Plan (1) Impingement syndrome of left shoulder: Code(s): M75.42 - Impingement syndrome of left shoulder Category: Medical Plan Ms. Mar presents with left shoulder pain due to impingement syndrome. The risks and benefits of a left shoulder cortisone injection were discussed at length with the patient. The patient wished to proceed. She tolerated the injection well. She will continue with her home stretching program. She will contact me prior to her follow-up appointment in 3 months should any questions or concerns arise. Feel free to call me at any time should questions regarding her orthopedic management arise. I spent 22 minutes in reviewing the patient's records and imaging studies, seeing the patient and documenting in the medical record. Orders: Orders AMB Joint Injection/Aspiration 07/06/24 M75.42 - Impingement syndrome of left shoulder Coding Level of Care Code Est Pt Level 3 (81602) Complex EM visit Add On G2211 Diagnoses Impingement syndrome of left shoulder M75.42 CPT Codes Coding - 69330 Large joint: 16124 - Large joint ([id number])
[2024-07-06 13:14] VITALS: BMI 26.7
== END 2024-07-06 13:42 | disposition home or self-care (01) ==
PROVIDERS: PCP Internal Medicine; Visit Provider Orthopaedic Surgery
DX: M75.42 Impingement syndrome of left shoulder (principal)
CPT/HCPCS: 20610; 99213

== ENCOUNTER → 2024-07-06 13:06 | Outpatient (BNVA) | payer BC, SELFPAY | PROVIDERS: PCP Internal Medicine; Visit Provider Orthopaedic Surgery | DX: M75.42 Impingement syndrome of left shoulder (principal) | CPT/HCPCS: 20610; J1010; J2003 ==

== ENCOUNTER 2024-09-09 13:43 | Outpatient (REF) | payer BC, SELFPAY ==
--- NOTE | ~2024-09-09 | US_ITS ---
EXAMINATION: US SCREENING ULTRASOUND BREAST, BILATERAL CLINICAL INFORMATION: Dense breasts on mammography. Screening ultrasound. Family history of breast cancer. COMPARISON: None available. TECHNIQUE: Ultrasound is performed using grayscale imaging and color Doppler. Imaging is performed to include the four quadrants and retroareolar region. Both breasts are imaged. FINDINGS: Right breast: There is no suspicious finding by ultrasound. There is no solid mass or focal architectural abnormality. Left breast: There is no suspicious finding by ultrasound. There is no solid mass or focal architectural abnormality. US/US breast BI complete IMPRESSION: No suspicious findings on screening breast ultrasound. ASSESSMENT: BI-RADS 1 - Negative RECOMMENDATION: 1 year F/U This patient's information was entered into a reminder system with a target due date for their next mammogram. Electronically signed by: Kalie Ivey DO 09/09/2024 02:30 PM EDT
== END 2024-09-09 13:44 | disposition home or self-care (01) ==
LOC: HO.MAMMO 13:43
PROVIDERS: PCP Internal Medicine; Visit Provider Surgery
DX: R92.30 Dense breasts, unspecified (principal); Z91.89 Other specified personal risk factors, not elsewhere classified; Z80.3 Family history of malignant neoplasm of breast
CPT/HCPCS: 76641

== ENCOUNTER → 2024-09-09 14:00 | Outpatient (BNV) | payer BC, SELFPAY | PROVIDERS: PCP Internal Medicine; Visit Provider Internal Medicine | DX: R92.30 Dense breasts, unspecified (principal); Z80.3 Family history of malignant neoplasm of breast | CPT/HCPCS: 76641 ==

== ENCOUNTER 2024-10-06 12:55 | Outpatient (AMB) | payer BC, SELFPAY ==
--- NOTE | 2024-10-06 13:03 | MHC.OFFVIS ---
Vital Signs 10/06/24 13:04 Height 5 ft 2 in Weight 146 lb BMI 26.7 Intake Visit Reasons: Left shoulder pain Intake Note: Saskia is a 48 year old female who presents with complaints of left shoulder pain. She describes her pain as achy in nature. Most of the pain is along the lateral aspect of her shoulder. She denies any weakness. She has tried anti-inflammatory medicines, Tylenol and physical therapy exercises which gave her minimal relief. She has had cortisone injections which gave her good relief. She wishes to hold off on surgery at all possible. 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 Female Reproductive History Menstrual Age of Menarche: 16 Physical Exam Vital Signs: BMI result Body Mass Index 26.7 Const Other: Well-nourished well-developed very friendly female awake alert and oriented x3 in no acute distress Extrem Other: Bilateral upper extremity examination shows good capillary refill, no skin lesions noted, normal sensation light touch Left shoulder examination shows full range of motion when compared to her right shoulder, 4+ out of 5 strength with supraspinatus testing, positive impingement signs, no instability Office Procedures AMB Joint Injection/Aspiration Joint Injection/Aspiration Primary Site: left shoulder Prep: site was prepped using aseptic technique Injected: 40 mg of, DepoMedrol and 1% plain lidocaine Procedure: The patient tolerated the procedure well Coding 50363 - Large joint Procedure code (CPT) selection complete Assessment & Plan Assessment & Plan (1) Impingement syndrome of left shoulder: Code(s): M75.42 - Impingement syndrome of left shoulder Category: Medical (2) Left shoulder pain: Code(s): M25.512 - Pain in left shoulder Category: Medical Qualifiers: Chronicity: acute Qualified Code(s): M25.512 - Pain in left shoulder Plan Ms. Mar who presents with left shoulder pain due to impingement syndrome. The risks and benefits of a left shoulder cortisone injection were discussed at length with the patient. The patient wished to proceed. She tolerated the injections well. She will continue with her home exercise program. She will contact me prior to her follow-up appointment in 3 months should any questions or concerns arise. Feel free to call me at any time should questions regarding her orthopedic management arise. I spent 20 minutes in reviewing the patient's records and imaging studies, seeing the patient and documenting in the medical record. Orders: Orders AMB Joint Injection/Aspiration Today M75.42 - Impingement syndrome of left shoulder Coding Level of Care Code Est Pt Level 3 (72966) Complex EM visit Add On G2211 Diagnoses Impingement syndrome of left shoulder M75.42 Acute pain of left shoulder M25.512 Chronicity: acute CPT Codes Coding - 27317 Large joint: 46592 - Large joint ([id number])
[2024-10-06 13:04] VITALS: BMI 26.7
== END 2024-10-06 13:33 | disposition home or self-care (01) ==
LOC: HO.HOS 12:56
PROVIDERS: PCP Internal Medicine; Visit Provider Orthopaedic Surgery
DX: M75.42 Impingement syndrome of left shoulder (principal); M25.512 Pain in left shoulder
CPT/HCPCS: 20610; 99213

== ENCOUNTER → 2024-10-06 12:55 | Outpatient (BNVA) | payer BC, SELFPAY | PROVIDERS: PCP Internal Medicine; Visit Provider Orthopaedic Surgery | DX: M75.42 Impingement syndrome of left shoulder (principal); M25.512 Pain in left shoulder | CPT/HCPCS: 20610; J1010; J2003 ==

== ENCOUNTER 2025-01-06 14:28 | Outpatient (AMB) | payer BC, SELFPAY ==
--- NOTE | 2025-01-06 14:31 | A.OFFVIS_ITS ---
Vital Signs 01/06/25 14:35 Height 5 ft 2 in Weight 146 lb BMI 26.7 Intake Visit Reasons: Inj-LT Shoulder inj-last inj 10/06/24 Intake Note: Saskia is a 49 year old female who presents with complaints of pain along the lateral aspect of her left shoulder. She has had cortisone injections in the past which gave her fairly good relief. She denies any weakness. She also r eports intermittent pain along the ulnar border of her left wrist. She aggravated her wrist several weeks ago while lifting a cooler. She has been wearing a wrist splint which gives her mild relief. 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 Female Reproductive History Menstrual Age of Menarche: 16 Physical Exam Const Other: Well-nourished well-developed very friendly female awake alert and oriented x3 in no acute distress Extrem Other: Left shoulder examination shows almost full range of motion when compared to her right shoulder, 5/5 strength with supraspinatus testing, positive impingement signs, no instability Office Procedures AMB Joint Injection/Aspiration Joint Injection/Aspiration Primary Site: left shoulder Prep: site was prepped using aseptic technique Injected: 40 mg of, DepoMedrol and 1% plain lidocaine Procedure: The patient tolerated the procedure well Coding 75710 - Large joint Procedure code (CPT) selection complete Assessment & Plan Assessment & Plan (1) Impingement syndrome of left shoulder: Code(s): M75.42 - Impingement syndrome of left shoulder Category: Medical Plan Saskia presents with left shoulder pain due to impingement syndrome as well as left wrist pain most likely due to tendinitis. The risks and benefits of a left shoulder cortisone injection were discussed at length with the patient. The patient wished to proceed. I will refer the patient to our hand specialists for further evaluation of her left wrist tendinitis. She will contact me prior to her follow-up appointment in 3 months should any questions or concerns arise. Feel free to call me at any time should questions regarding her orthopedic management arise. I spent 22 minutes in reviewing the patient's records and imaging studies, seeing the patient and documenting in the medical record. Orders: Orders AMB Joint Injection/Aspiration Today M75.42 - Impingement syndrome of left shoulder Coding Level of Care Code Est Pt Level 3 (58188) Complex EM visit Add On G2211 Diagnoses Impingement syndrome of left shoulder M75.42 CPT Codes Coding - 78984 Large joint: 77702 - Large joint ([id number])
[2025-01-06 14:35] VITALS: BMI 26.7
== END 2025-01-06 14:51 | disposition home or self-care (01) ==
LOC: HO.HOS 14:28
PROVIDERS: PCP Internal Medicine; Visit Provider Orthopaedic Surgery
DX: M75.42 Impingement syndrome of left shoulder (principal)
CPT/HCPCS: 20610; 99213

== ENCOUNTER → 2025-01-06 14:28 | Outpatient (BNVA) | payer BC, SELFPAY | PROVIDERS: PCP Internal Medicine; Visit Provider Orthopaedic Surgery | DX: M75.42 Impingement syndrome of left shoulder (principal) | CPT/HCPCS: 20610; J1010; J2003 ==

== ENCOUNTER 2025-02-18 08:35 | Outpatient (REF) | payer BC, SELFPAY ==
--- NOTE | ~2025-02-18 | XR_ITS ---
EXAMINATION: XR WRIST, LEFT CLINICAL INFORMATION: M25.532 - Pain in left wrist COMPARISON: None available. TECHNIQUE: PA, lateral, and oblique views of the left wrist. FINDINGS: The bones and soft tissues are normal. No fracture. Alignment is anatomic with normal joint spaces. No erosions or abnormal soft tissue calcifications. XR/XR wrist LT min 3V IMPRESSION: Normal left wrist. Electronically signed by: Jerrica Coyle MD 02/18/2025 01:38 PM EDT
== END 2025-02-18 08:36 | disposition home or self-care (01) ==
LOC: HO.HOSX 08:35
DX: M77.8 Other enthesopathies, not elsewhere classified (principal); M25.532 Pain in left wrist
CPT/HCPCS: 73110

== ENCOUNTER 2025-02-18 13:16 | Outpatient (AMB) | payer BC, SELFPAY ==
--- NOTE | 2025-02-18 13:31 | A.OFFVIS_ITS ---
Vital Signs 02/18/25 13:32 Height 5 ft 2 in Weight 147 lb BMI 26.9 Handedness Left Intake Visit Reasons: New prob- Left wrist pain Intake Note: Saskia is a 49 year old left hand dominant female who presents today for a New Problem visit for evaluation of Left Wrist Pain. Denies recent injury. Patient reports she does everything for with her left hand, seeing DR for a RTC tear of left shoulder. She noticed 4-5 months ago she feels and hears cracking in the wrist. Says over the summer ago she lifted something heavy and has a shooting pain on the ulnar aspect that radiated to elbow that lasted a few weeks after. She says she sometimes has tingling and occasionally has difficulty lifting objects. Says if she hits it just right she hurts herself. Denies past treatment in the left wrist. Allergies No Known Allergies Allergy (Verified 02/18/25 13:33) HPI HPI New prob- Left wrist pain: Details: Saskia is a 49 year old left hand dominant female who presents today for a New Problem visit for evaluation of Left Wrist Pain. Denies recent injury. Patient reports she does everything for with her left hand, seeing DR for a RTC tear of left shoulder. She noticed 4-5 months ago she feels and hears cracking in the wrist. Says over the summer ago she lifted something heavy and has a shooting pain on the ulnar aspect that radiated to elbow that lasted a few weeks after. She says she sometimes has tingling and occasionally has difficulty lifting objects. Says if she hits it just right she hurts herself. Denies past treatment in the left wrist. 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 Neuro: Normal sensation of the tips of all digits of the left hand at this time Vascular: Cap refill brisk Pain: Tenderness to palpation of the left ulnar styloid Pain with resisted extension and passive hyperflexion of the left wrist in the ulnar aspect ROM: Patient is able to make a closed fist and extend all digits of the left hand fully Range of motion of the left wrist full and intact, but slightly painful over the dorsal Skin: No lacerations or abrasions. General: No ecchymosis, erythema, or evidence of infection. Psych: Appears grossly normal Affect normal Attitude cooperative Results Reviewed Results Reviewed: X-rays obtained in the office today and independently reviewed by me, George Alexandre PA-C, demonstrate no fracture or acute bony abnormality of the left wrist . Assessment & Plan Assessment & Plan (1) Extensor carpi ulnaris tendinitis: Code(s): M77.8 - Other enthesopathies, not elsewhere classified Category: Medical Plan 1. ECU tendinitis of the left wrist Patient is educated about this condition Patient is educated about the typical recovery course At this time, patient is provided with a Velcro wrist splint to wear when her wrist is particularly bothering her Patient is also referred to OT for range of motion and strengthening of the left wrist in the setting of ECU tendinitis No acute follow-up indicated, if patient does not experience significant improv ement with OT, can call us for re-evaluation Patient understands this in his amenable to this plan Orders: Orders XR wrist LT min 3V 02/18/25 M25.532 - Pain in left wrist OT Evaluation and Treatment 02/18/25 M77.8 - Other enthesopathies, not elsewhere classified Coding Level of Care Code Est Pt Level 3 (36195) Diagnoses Extensor carpi ulnaris tendinitis M77.8
[2025-02-18 13:32] VITALS: BMI 26.9
== END 2025-02-18 13:59 | disposition home or self-care (01) ==
LOC: HO.HOS 13:17
PROVIDERS: PCP Internal Medicine
DX: M67.834 Other specified disorders of tendon, left wrist (principal)
CPT/HCPCS: 99213

== ENCOUNTER → 2025-02-18 13:20 | Outpatient (BNV) | payer BC, SELFPAY | PROVIDERS: Visit Provider Radiology Diagnostic Radiology | DX: M25.532 Pain in left wrist (principal) | CPT/HCPCS: 73110 ==

== ENCOUNTER 2025-03-07 15:17 | Outpatient (REF) | payer BC, SELFPAY ==
--- NOTE | ~2025-03-07 | MM_ITS ---
EXAMINATION: MM SCREENING DIGITAL BREAST TOMOSYNTHESIS, BILATERAL CLINICAL INFORMATION: Screening. Asymptomatic. MR guided needle core biopsy of the left breast on September 05, 2021; pathology results showed benign breast tissue with fibrocystic changes, pseudoangiomatous stromal hyperplasia, and features suggesting hamartoma (Trimark barbell shape clip).. MR guided needle core biopsy of the left breast on May 19, 2018; pathology results showed hyalinized fibroadenoma (TriMark cylinder shape clip). COMPARISON: Comparison made to multiple prior, most recent March 01, 2024, and most remote February 02, 2019. TECHNIQUE: Digital breast tomosynthesis is performed in mediolateral oblique and craniocaudal views along with computer-aided detection (CAD). Synthesized 2D images are generated from the tomosynthesis. FINDINGS: BREAST COMPOSITION: The breasts are heterogeneously dense, which may obscure small masses. RIGHT BREAST: No significant masses, suspicious calcifications or other abnormalities are seen. LEFT BREAST: 2 tissue markers from previous needle core biopsies. No significant masses, suspicious calcifications or other abnormalities are seen. MM/MM tomosynthesis screening BI IMPRESSION: BILATERAL BREASTS: Benign, no mammographic evidence of malignancy. Normal interval follow-up is recommended in 12 months. ASSESSMENT: BI-RADS: Category 2: Benign RECOMMENDATION: Routine annual mammography screening. FOLLOW-UP: 1 year F/U This examination should not preclude the clinical evaluation of a suspicious palpable abnormality. This patient's information was entered into a reminder system with a target due date for their next mammogram. Electronically signed by: Noemi Veliz MD 03/09/2025 06:36 PM [facility]
== END 2025-03-07 15:18 | disposition home or self-care (01) ==
LOC: HO.MAMMO 15:17
PROVIDERS: Absent Provider Surgery; PCP Internal Medicine; Visit Provider Internal Medicine
DX: Z12.31 Encounter for screening mammogram for malignant neoplasm of breast (principal)
CPT/HCPCS: 77063; 77067

== ENCOUNTER → 2025-03-07 15:30 | Outpatient (BNV) | payer BC, SELFPAY | PROVIDERS: Absent Provider Surgery; PCP Internal Medicine; Visit Provider Radiology Body Imaging | DX: Z12.31 Encounter for screening mammogram for malignant neoplasm of breast (principal) | CPT/HCPCS: 77063; 77067 ==

== ENCOUNTER 2025-03-14 15:03 | Outpatient (AMB) | payer BC, SELFPAY ==
--- NOTE | 2025-03-14 15:07 | A.OFFVIS_ITS ---
Vital Signs 03/14/25 15:11 Height 5 ft 2 in Weight 150 lb 2 oz BMI 27.5 BP 130/70 Blood Pressure Location Lt brachial Position Sitting Pulse 97 Intake Visit Reasons: yearly breast exam Intake Note: Patient is seen in office for yearly breast exam. 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 Lea returning for high- risk breast evaluation. Her family history is significant for her mother the in diagnosed with stage IV breast cancer. She subsequently succumbed to disease approximately 1 year later. In addition her paternal grandmother was also t reated for breast cancer with bilateral mastectomies. She live well into her 90s. Patient has been undergoing yearly mammogram and breast MRIs but more recently as switch to screening ultrasounds because of shoulder injuries. She also reports starting hormone replacement therapy due to severe menopausal symptoms. She started this several weeks ago and already feels much improved. A previous MR guided core biopsy on 05/19/2018 revealed a hyalinized fibroadenoma. MR guided biopsy of 09/05/2021 revealed benign breast tissue with fibrocystic change, pseudoangiomatous stromal hyperplasia, and findings suggestive of a hamartoma. Her most recent mammogram dated 03/07/2025 revealed benign findings with no mammographic evidence of malignancy. Follow-up mammogram in 1 year is recommended. Screening ultrasounds performed on 09/09/2024 also revealed no suspicious findings in either breast (BI-RADS 1). She continues to have discomfort in raising her arm over her head therefore would like to continue with screening ultrasounds as opposed to breast MRI. 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 Slight increased fibrocystic change in the upper outer quadrant compared to the right breast Right breast: No skin change, no nipple retraction, no nipple discharge, no palpable mass, no enlarged lymph nodes Resp Effort & Inspection: normal respiratory effort, no audible wheezes, no cough and no respiratory distress GI Inspection: Yes normal to inspection Skin General skin exam: no rashes or lesions noted Extrem General: Yes no clubbing, cyanosis or edema Assessment & Plan Assessment & Plan (1) Breast cancer screening, high risk patient: Code(s): Z12.39 - Encounter for other screening for malignant neoplasm of breast Category: Medical (2) Family history of breast cancer: Code(s): Z80.3 - Family history of malignant neoplasm of breast Category: Medical (3) At high risk for breast cancer: Code(s): Z91.89 - Other specified personal risk factors, not elsewhere classified Category: Medical Plan 49-year-old female patient determined to be at high risk for breast cancer due to family history returning for a high-risk breast examination. Recent mammogram and screening ultrasounds have been negative for suspicious changes. Examination today revealed no suspicious findings in either breast with only mild fibrocystic change. The patient reports starting hormone replacement therapy due to severe menopausal symptoms. She does feel improved after starting the hormone replacement. As a result of her adding hormone replacement, I suggested twice yearly screening ultrasounds along with the annual mammogram. She expressed understanding and agrees with the plan. She will follow up in approximately 6 months for follow-up examination. Orders: Orders US breast LT complete 03/14/25 Z12.39 - Encounter for other screening for malignant neoplasm of breast, Z80.3 - Family history of malignant neoplasm of breast, Z91.89 - Other specified personal risk factors, not elsewhere classified US breast RT complete 03/14/25 Z12.39 - Encounter for other screening for malignant neoplasm of breast, Z80.3 - Family history of malignant neoplasm of breast, Z91.89 - Other specified personal risk factors, not elsewhere classified Coding Level of Care Code Est Pt Level 3 (69615) Complex EM visit Add On G2211 Diagnoses Breast cancer screening, high risk patient Z12.39 Family history of breast cancer Z80.3 At high risk for breast cancer Z91.89
[2025-03-14 15:11] VITALS: BP 130/70; PULSE 97; BMI 27.5
== END 2025-03-14 15:29 | disposition home or self-care (01) ==
LOC: HO.HGS 15:03
PROVIDERS: PCP Internal Medicine; Visit Provider Surgery
DX: Z12.39 Encounter for other screening for malignant neoplasm of breast (principal); Z80.3 Family history of malignant neoplasm of breast; Z91.89 Other specified personal risk factors, not elsewhere classified
CPT/HCPCS: 99213

== ENCOUNTER 2025-04-19 14:15 | Outpatient (AMB) | payer BC, SELFPAY ==
--- NOTE | 2025-04-19 14:22 | MHC.OFFVIS ---
Intake Visit Reasons: Inj-LT Shoulder inj-last inj 01/06/25 Intake Note: Saskia is a 49 year old female who presents with complaints of left shoulder pain. She describes her pain as sharp in nature. Most of the pain is along the lateral aspect of her left shoulder. She denies any weakness. She has tried Tylenol and anti-inflammatory medicines which gave her mild relief. She has had cortisone injections in the past which have given her good relief. She wishes to hold off on surgery if at all possible. 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 Reproductive History Menstrual Age of Menarche: 16 Physical Exam Extrem Other: Left shoulder examination shows almost full range of motion when compared to her right shoulder, 5/5 strength with supraspinatus testing, positive impingement signs, no instability Office Procedures AMB Joint Injection/Aspiration Joint Injection/Aspiration Primary Site: Left Shoulder Prep: site was prepped using aseptic technique Injected: 40 mg of, DepoMedrol, with 3 mL of and 1% plain Lidocaine Procedure: The patient tolerated the procedure well Coding 58346 - Large joint Procedure code (CPT) selection complete Assessment & Plan Assessment & Plan (1) Impingement syndrome of left shoulder: Code(s): M75.42 - Impingement syndrome of left shoulder Category: Medical Plan Ms. Mar presents with left shoulder pain due to impingement syndrome. The risks and benefits of a left shoulder cortisone injection were discussed at length with the patient. The patient wished to proceed. She tolerated the injection well. She will continue with her home stretching program. She will contact me prior to her follow-up appointment in 3 months should any questions or concerns arise. Feel free to call me at any time should questions regarding her orthopedic management arise. I spent 22 minutes in reviewing the patient's records and imaging studies, seeing the patient and documenting in the medical record. Orders: Orders AMB Joint Injection/Aspiration 04/19/25 M75.42 - Impingement syndrome of left shoulder Coding Level of Care Code Est Pt Level 3 (04620) Add On Problem Visit Only Diagnoses Impingement syndrome of left shoulder M75.42 CPT Codes Coding - 36920 Large joint: 78160 - Large joint ([id number])
== END 2025-04-19 14:53 | disposition home or self-care (01) ==
LOC: HO.HOS 14:16
PROVIDERS: PCP Internal Medicine; Visit Provider Orthopaedic Surgery
DX: M75.42 Impingement syndrome of left shoulder (principal)
CPT/HCPCS: 20610; 99213

== ENCOUNTER → 2025-04-19 14:15 | Outpatient (BNVA) | payer BC, SELFPAY | PROVIDERS: PCP Internal Medicine; Visit Provider Orthopaedic Surgery | DX: M75.42 Impingement syndrome of left shoulder (principal) | CPT/HCPCS: 20610; J1010; J2003 ==